=== PATIENT | male | born 1965 | race Caucasian/White ===

== ENCOUNTER → 2017-06-10 | Day surgery (SDC) | payer BC, OTHER ==
[2017-06-05 08:17] VITALS: Ht 182.9 cm; Wt 95.5 kg
[~2017-06-10] VITALS: Ht 182.9 cm; Wt 95.5 kg
[~2017-06-10] MED LIST: ACETAMINOPHEN 325 MG TAB PO PRN; ATROPINE SULFATE 0.1 MG/ML 5ML SYR IV PRN; BACITRACIN OINT 15 GM TUBE ONE; BUPIVACAINE 0.25% 30 ML VIAL ONE; CEFAZOLIN 2000MG IV PUSH 10 ML IV SCH; DEXAMETHASONE SOD INJ 4 MG/ML VIAL IV PRN; EpHEDrine SULFATE INJ 50 MG/ML AMP IV PRN; FENTANYL CITRATE INJ 50 MCG/1 ML 2 ML VIAL IV PRN; FENTANYL CITRATE INJ 50 MCG/1 ML 2 ML VIAL ONE; KETAMINE HCL INJ 50 MG/ML 10 ML VIAL ONE; LACTATED RINGER'S 1000ML 1,000 ML IV SCH; LIDOCAINE HCL 1% 20 ML VIAL ONE; LIDOCAINE HCL 2% 2 ML VIAL (20MG/ML) ONE; LIDOCAINE/EPINEPHRINE 1% INJ 50 ML VIAL ONE; METOCLOPRAMIDE HCL INJ 5 MG/ML 2 ML VIAL IV PRN; MIDAZOLAM HCL 1 MG/ML 2ML VIAL ONE; ONDANSETRON INJ 2 MG/ML 2 ML VIAL IV PRN; OXYCODONE/ACETAMINOPHEN 5-325 TAB PO PRN; PROPOFOL IV EMULSION 10 MG/ML 20 ML VIAL IV ONE; SODIUM CHLORIDE 0.9% 1000ML 1,000 ML IV SCH; WATER, STERILE FOR INJ 10 ML VIAL ONE; ZOLP5TAB PO
--- NOTE | 2017-06-10 11:30 | History & Physical Bridge - [place] ---
H&P Re-Evaluation Bridge Note: I have examined the patient, reviewed the History & Physical and in the interval since the performance of the History & Physical I have noted the following changes of clinical significance: No changes noted
--- NOTE | 2017-06-10 12:28 | [facility] Post Operative Brief Note ---
Immediate Operative Summary Operative Date Jun 10, 2017. Pre-Operative Diagnosis Lipoma of skin and subcutaneous tissue of neck Post-Operative Diagnosis Same as preop Procedure(s) Performed Right Posterior Neck/Scalp Lipoma Excision Surgeon Dr. Segal Health Policy Analyst Surgeon(s) Lizabeth Ro PA-C Estimated Blood Loss 2 mL Findings subfascial lipoma Specimens A: Posterior neck/scalp lipoma Anesthesia local with sedation Complication(s) None Disposition Recovery Room / PACU
[2017-06-10 12:32] VITALS: TEMP 36.9
--- NOTE | 2017-06-10 12:36 | Discharge Instructions ---
Discharge Instructions Date of Service Jun 10, 2017. Admission Reason for Admission: Lipoma Of Skin And Subcutaneous Tissue Of Neck Discharge Discharge Diagnosis / Problem: lipoma Discharge Goals Goal(s): Decrease discomfort, Improve function Activity Recommendations Activity Limitations: per Instructions/Follow-up section ACTIVITY RECOMMENDATIONS: __Normal activities _x_No bending, lifting or straining __No driving __Driving allowed when you are off pain medications _x_Walking permitted __You should have help at home for ___ days DRESSINGS: __No dressings required _x_Keep dressings dry/in place until first office visit. If tape falls off, do not need to re-apply dressing. Apply antibiotic ointment to incision if it falls off __Remove dressings ___ and leave dressings off _x_Apply ice _3__ days __Remove dressings and reapply garment _x_Apply antibiotic ointment (Bacitracin, Neosporin, etc) to wounds 3-4 times/ day for 10 days BATHING: _x_Keep dressings dry _x_Sponge bathing permitted __Showering permitted _x_No swimming, hot tubs or soaking in a tub MEDICATIONS: Resume previous medications unless instructed otherwise by your surgeon. _x_Do not use aspirin, Motrin, Advil or Ibuprofen as these may promote bleeding. Please use Tylenol. _x_Prescription(s) provided: pain medication provided at your last office visit OTHER INSTRUCTIONS: __Record drain output 2-3 times per day SPECIAL CARE INSTRUCTIONS: * It is normal to have a mild fever after surgery. If your temperature is higher than 101.5 degrees F, please call the office at [phone]. * Constipation is a typical side effect of pain medication. An over-the- counter stool softener will help relieve this. * Leaking around surgical drains may occur and should not cause concern. Sometimes these drains become clogged. If this happens, remove the bulb and milk the clot out of the tube, then replace the bulb. * Drainage from wounds after liposuction is normal and should be expected. Garments will become soiled. You should protect furniture and bedding. This drainage should mostly subside within 2-3 days. Leave garments in place unless instructed to remove them. * If you have unusual drainage from a wound or are concerned you have an infection or have any questions or concerns, please call the office at [phone]. FOLLOW UP VISIT: If not already scheduled, please call the office, , when you return home after surgery to schedule an appointment to be seen in _2__ days. . Current Hospital Diet Patient's current hospital diet: Discharge Diet Recommended Diet: Regular Diet Procedures Procedures Performed: Right Posterior Neck/Scalp Lipoma Excision Pending Studies Studies pending at discharge: yes List of pending studies: pathology Medical Emergencies . Who to Call and When: Medical Emergencies: If at any time you feel your situation is an emergency, please call 911 immediately. . Non-Emergent Contact Non-Emergency issues call your: Primary Care Provider . "Provider Documentation" section prepared by Lizabeth Ro. . VTE Core Measure Inpt VTE Proph given/why not?: SCD's [place] Drug Monitoring Program Search Results: no issues identified
--- NOTE | 2017-06-10 12:50 | Anesthesiology Progress Note ---
Anesthesia Post Op Note Date & Time Jun 10, 2017 at 12:49 Vital Signs Pain Intensity: 0 Vital Signs Past 12 Hours Date Time Temp Pulse Resp B/P (MAP) Pulse Ox O2 Delivery O2 Flow Rate FiO2 06/10/17 12:32 36.9 72 16 115/71 (86) 98 Room Air 06/10/17 10:29 36.9 76 16 129/71 (90) 99 Room Air Notes Mental Status: alert / awake / arousable, participated in evaluation Pt Amnestic to Procedure: Yes Nausea / Vomiting: adequately controlled Pain: adequately controlled Airway Patency, RR, SpO2: stable & adequate BP & HR: stable & adequate Hydration State: stable & adequate Anesthetic Complications: no major complications apparent
[2017-06-10 12:55] VITALS: BP 122/78; PULSE 59; O2SAT 97
--- NOTE | 2017-06-10 14:35 | OPERATIVE REPORT ---
DATE OF OPERATION: 06/10/2017 PREOPERATIVE DIAGNOSIS: Right posterior neck lipoma. POSTOPERATIVE DIAGNOSIS: Same. PROCEDURE: Excision lipoma, right posterior scalp/neck. SURGEON: Dr. Yary Segal. RIVET HAMMER MACHINE OPERATOR: Lizabeth Ro PA-C. ANESTHESIA: Local with sedation. COMPLICATIONS: None. INDICATION FOR THE PROCEDURE: The patient is a 51-year-old male who presented to my office with concerns of an enlarging soft tissue mass on the posterior aspect of his neck. Given that it has grown, he desires removal. He has previously had the lesion biopsied and was consistent with lipoma. BRIEF DESCRIPTION OF THE PROCEDURE: Risks, benefits, and alternatives of the procedure were explained to the patient who agreed and signed consent. He was identified and marked in the preoperative holding area. He was brought to the operating room where he was positioned prone and placed under anesthesia without incident. Surgical site was prepped and draped sterilely. A time-out procedure was performed. 1% lidocaine with epinephrine was used to anesthetize the planned incision. A 15 blade scalpel made the incision through skin and underlying subcutaneous tissue to superficial fascia. The mass was palpable beneath the superficial fascia which was incised using electrocautery. Blunt dissection was initially performed using a curved hemostat, but there were some fibrous attachments superiorly and at the wound base, which required sharp dissection using Metzenbaum scissors. Once the lipoma was removed, hemostasis was achieved with electrocautery. Lipoma measured just over 2 cm in size. The wound was reapproximated using 3-0 Vicryl dermal sutures and 4-0 Monocryl running subcuticular suture. Bacitracin and a dry dressing were placed. The procedure was tolerated well. The patient was awakened and transferred to recovery in satisfactory condition. I attest to the content of the Intraoperative Record and any orders documented therein. Any exception s are noted below.
== END | disposition home or self-care (01) ==
LOC: X.SURG 10:06
PROVIDERS: ATTEND Plastic Surgery
DX: D17.0 Benign lipomatous neoplasm of skin and subcutaneous tissue of head, face and neck (principal); K21.9 Gastro-esophageal reflux disease without esophagitis; F17.200 Nicotine dependence, unspecified, uncomplicated; Z79.899 Other long term (current) drug therapy